=== PATIENT | female | born 1965 | race Caucasian/White ===

== ENCOUNTER 2017-04-17 09:57 | Outpatient (CLI) | payer OTHER ==
[~2017-04-17 09:57] MED LIST: GLUCOPHAGE XR750 MG PO; HYZAAR 100/25 T1 TAB PO; SYNTHROID150 MCG PO
== END 2017-04-17 09:58 | disposition home or self-care (01) ==
LOC: LAB 09:57
DX: E11.65 Type 2 diabetes mellitus with hyperglycemia (principal); E03.5 Myxedema coma